=== PATIENT | male | born 1960 | race Caucasian/White ===

== ENCOUNTER 2018-07-14 22:30 | Emergency (ER) | payer OTHER ==
[~2018-07-14] VITALS: Ht 188 cm; Wt 95.3 kg
[~2018-07-14 22:30] MED LIST: ALLEGRA ALLERGY60 MG PO; BACTRIM DS TAB1 EACH PO; FISH OIL 1,0001 EAC5 PO; HYDROCODON-ACE1 EACH PO; MELOXICAM7.5 MG PO; PRILOSEC 20 MG20 MG PO
[2018-07-14] MEDS ORDERED: AZITHROMYCIN 2250 MG PO (22:42)
[2018-07-14] MEDS ORDERED: PROAIR HFA8.5 GM SPRAY (22:43)
[2018-07-14] MEDS ORDERED: ALBUTEROL2.5 MG/0.5 INH (23:23)
[2018-07-14 23:44] VITALS: BP 105/78
== END 2018-07-14 23:46 | disposition home or self-care (01) ==
LOC: M.ERS 22:30
DX: J40 Bronchitis, not specified as acute or chronic (principal); F17.220 Nicotine dependence, chewing tobacco, uncomplicated